=== PATIENT | female | born 1985 | race Caucasian/White ===

== ENCOUNTER → 2020-05-29 | Outpatient (CLI) | payer OTHER, SELFPAY ==
[2017-11-21 16:21] VITALS: BMI 56.7
--- NOTE | 2020-05-29 09:05 | FLU_PTH ---
PATIENT: VI TEJADA LOC: [facility] U#:[id number] AGE/SX: 34/F ROOM: RE05/29/[address]: Dr. Óscar Denton MD : 1985 BED: DIS: 05/29/2020 SPEC #: [id number] RECD: 05/29/20 15:45 STATUS: MATTHEW DIANDRA #: [id number] LINA: 05/29/20 09:[address]: Óscar Denton DEPT: CYTOLOGY RECD BY: Daniela Reagan ENTERED: 05/30/20 09:31 SP TYPE: Fluid OTHR DR: Out of Town Doctor Tissues: A - Neck, NOS B - Neck, NOS Procedures: Special Stain Group II Surgery Specimen Level IV Cytospin Fluid HEADER OPERATION: FNA left neck mass (? Lymph node) PRE-OP DIAGNOSIS: Left neck mass - probable reactive lymph node TISSUE SUBMITTED: A - FNA left neck mass fluid for cytology, B - Left neck mass 6 slides DIAGNOSIS CYTOLOGY A. Fine needle aspiration left neck fluid (smears and cell block): Negative for malignant cells. See comment. B. Fine needle aspiration left neck mass (smears): Mature adipose tissue and blood. No evidence of malignancy. See comment. AM:shannon 05/31/20 COMMENT A. The specimen primarily contains blood. Clinical correlation is suggested. B. Clinical correlation is suggested. Case has been reviewed in consultation with Dr. Joy who concurs with the above diagnosis. IDC:[facility] CYTOLOGY STUDY Slides are reviewed. CYTOLOGY GROSS A - Received is 35 ml of colorless hazy fluid labeled with the patient's name and and designated per the requisition as left neck mass. Submitted for cytology preparation including cell block. B - Received are six smears labeled with the patient's name and designated per the requisition as left neck mass. Submitted for staining. / shannon 05/30/20 TC:5 CPT: 26271, 98017, 38577 x2
== END | disposition home or self-care (01) ==
LOC: LABSPEC 16:05
PROVIDERS: Referring Provider Family Medicine; Visit Provider Family Medicine
DX: R22.1 Localized swelling, mass and lump, neck (principal)
CPT/HCPCS: 88108; 88305; 88313